=== PATIENT | female | born 1955 | race Caucasian/White ===

== ENCOUNTER → 2024-03-25 11:40 | Outpatient (REF) | payer MEDICARE, BC, SELFPAY ==
[2024-03-25 12:46] LABS: % Basophils 1.3 % (0-2); % Eosinophils 3.8 % (0-6); % Lymphocytes 47.2 % (20.5-51.1); % Monocytes 7.6 % (1.7-9.3); % Neutrophils 40.1 % (42.2-75.2); Absolute Basophils 0.1 10^3/uL (0-0.2); Absolute Eosinophils 0.2 10^3/uL (0-0.7); Absolute Lymphocytes 2.1 10^3/uL (1.2-3.4); Absolute Monocytes 0.3 10^3/uL (0.1-0.6); Absolute Neutrophils 1.8 10^3/uL (1.4-6.5); Hematocrit 37.7 % (37.0-47.0); Hemoglobin 12.7 g/dL (12.0-16.0); Mean Corp Hgb Conc. 33.7 g/dL (33.0-37.0); Mean Corpuscular Hgb 31.4 pg (27.0-31.0); Mean Corpuscular Volume 93.3 fL (81.0-99.0); Mean Platelet Volume 9.5 fL (7.4-10.4); Nucleated Red Blood Cells % 0 %; Platelet Count 273 10^3/uL (130-400); Red Blood Cell Count 4.04 10^6/uL (4.20-5.40); White Blood Cell Count 4.5 10^3/uL (4.8-10.8)
[2024-03-25 13:38] LABS: ALT (SGPT) 19 U/L (0-35); AST (SGOT) 33 U/L (14-36); Albumin 4.6 g/dl (3.5-5.0); Alkaline Phosphatase 70 U/L (38-126); Blood Urea Nitrogen 10 mg/dl (7-17); Calcium 10.2 mg/dl (8.4-10.2); Carbon Dioxide 34 mmol/L (22-30); Chloride 101 mmol/L (98-107); Glucose 86 mg/dl (70-99); HDL Cholesterol 46 mg/dl; Potassium 4.4 mmol/L (3.5-5.1); Sodium 142 mmol/L (135-145); Total Bilirubin 0.3 mg/dl (0.2-1.3); Triglyceride 369 mg/dl (10-149); Very Low Density Lipoprotein 73 mg/dl (0-30); eGFR > 60.00
[2024-03-25 13:48] LABS: LDL Cholesterol, Calculated 232 mg/dl; Total Cholesterol 351 mg/dl (50-199)
[2024-03-25 14:18] LABS: TSH Reflex To Free T4 2.98 uIU/ml (0.47-4.68)
== END ==
LOC: REG 11:40
PROVIDERS: ATTENDING PHYSICIAN Family Medicine
DX: E78.01 Familial hypercholesterolemia (principal); R94.5 Abnormal results of liver function studies; Z79.899 Other long term (current) drug therapy
CPT/HCPCS: 36415; 80053; 80061; 84443; 85025

== ENCOUNTER → 2024-05-11 13:30 | Outpatient (REF) | payer MEDICARE, BC, SELFPAY | LOC: HWWDC 13:30 | PROVIDERS: ATTENDING PHYSICIAN Family Medicine | DX: Z78.0 Asymptomatic menopausal state (principal); Z12.31 Encounter for screening mammogram for malignant neoplasm of breast | CPT/HCPCS: 77063; 77067; 77080 ==

== ENCOUNTER → 2024-06-17 15:30 | Outpatient (REF) | payer MEDICARE, BC, SELFPAY | LOC: MRI 3T 15:30 | PROVIDERS: ATTENDING PHYSICIAN Physician Assistant; FAMILY PHYSICIAN Family Medicine | DX: M25.562 Pain in left knee (principal) | CPT/HCPCS: 73721 ==